=== PATIENT | male | born 1985 | race Caucasian/White ===

== ENCOUNTER 2016-03-09 15:03 | Emergency (ER) | payer SELFPAY ==
[~2016-03-09 15:03] MED LIST: ANAPROX DS550 MG PO; CLEOCIN HCL150 MG PO; ELIMITE 5%60 GM PO; TRAMADOL HCL50 MG PO
[2016-03-09] MEDS ORDERED: NAPROSYN500 MG PO (15:37)
[2016-03-09] MEDS ORDERED: 'PARAFON FORTE500 M1 PO (15:37)
== END 2016-03-09 16:52 | disposition home or self-care (01) ==
LOC: ED 15:03
DX: M54.42 Lumbago with sciatica, left side (principal); M54.41 Lumbago with sciatica, right side; R03.0 Elevated blood-pressure reading, without diagnosis of hypertension; F17.200 Nicotine dependence, unspecified, uncomplicated; Z88.0 Allergy status to penicillin

== ENCOUNTER 2016-09-28 22:27 | Emergency (ER) | payer SELFPAY ==
[~2016-09-28] VITALS: Wt 104.3 kg
[~2016-09-28 22:27] MED LIST changes: +'PARAFON FORTE500 M1 PO; +NAPROSYN500 MG PO
[2016-09-29] MEDS ORDERED: BENADRYL ALLERG25 M5 PO (00:29)
[2016-09-29] MEDS ORDERED: PREDNISONE50 MG PO (00:29)
== END 2016-09-29 01:05 | disposition home or self-care (01) ==
LOC: ED 22:27
DX: S20.361A Insect bite (nonvenomous) of right front wall of thorax, initial encounter (principal); Z88.0 Allergy status to penicillin; Z88.7 Allergy status to serum and vaccine; F17.200 Nicotine dependence, unspecified, uncomplicated; W57.XXXA Bitten or stung by nonvenomous insect and other nonvenomous arthropods, initial encounter; Y93.9 Activity, unspecified; Y92.9 Unspecified place or not applicable; Y99.9 Unspecified external cause status

== ENCOUNTER 2016-09-30 17:58 | Inpatient (IN) | payer SELFPAY ==
[~2016-09-30] VITALS: Ht 193 cm; Wt 104.6 kg
--- NOTE | ~2016-09-30 | EKG ---
[place], [place] ELECTROCARDIOGRAM REPORT NAME: RAMON RANDALL UNIT #: [id number] ROOM: [id number] DOCTOR: SHANTELLE ALEGRIA MD BIRTHDATE: [birth year] DOS: 09/30/2016 TIME: 1804 hours. Normal sinus rhythm at 74 beats per minute. Complete left bundle branch block. An abnormal ECG. No previous tracing is available for comparison. SHANTELLE ALEGRIA MD CM:EKGRPT:ELECTROCARDIOGRAM REPORT 11 32 SHANTELLE ALEGRIA MD
[~2016-09-30 17:58] MED LIST changes: +BENADRYL ALLERG25 M5 PO; +PREDNISONE50 MG PO
[2016-09-30 18:05] VITALS: BP 139/81
[2016-09-30 18:17] LABS: BASO % 0.3 % (0.0-1.0); EOS # 0.1 10*3/uL (0.0-0.4); EOS % 0.6 % (1.0-4.0); HEMATOCRIT 45.9 % (42.0-52.0); HEMOGLOBIN 15.4 g/dl (14.0-18.0); IG # 0.1 10*3/uL (0.0-0.1); LYMPH # 3.9 10*3/uL (1.3-4.4); LYMPH % 28.5 % (27.0-41.0); MEAN CELL VOLUME 90.5 fl (80.0-94.0); MEAN CORPUSCULAR HGB 30.4 pg (27.0-31.0); MEAN CORPUSCULAR HGB CONC 33.6 g/dl (33.0-37.0); MEAN PLATELET VOLUME 9.6 fl (9.6-12.3); MONO # 0.8 10*3/uL (0.1-1.0); MONO % 5.9 % (3.0-9.0); NEUT # 8.9 10*3/uL (2.3-7.9); NEUT % 64.3 % (47.0-73.0); PLATELET COUNT AUTOMATED 284 10*3/uL (130-400); RED BLOOD COUNT 5.07 10*6/uL (4.50-5.90); RED CELL DISTRI WIDTH 12.2 % (0-14.5); WHITE BLOOD COUNT 13.8 10*3/uL (4.8-10.8)
[2016-09-30 18:26] LABS: URINE AMPHETAMINES < 1000 (1000ng/ml); URINE BARBITURATES < 200 (200ng/ml); URINE COCAINE < 300 (300ng/ml)
[2016-09-30 18:28] LABS: INTERNATIONAL NORM RATIO 1.1 (2.0-3.5); PROTHROMBIN TIME 11.2 SECONDS (9.0-12.4)
[2016-09-30 18:34] VITALS: BP 137/72
[2016-09-30 18:36] LABS: ALKALINE PHOSPHATASE 100 U/L (45-117); BILIRUBIN, TOTAL 0.3 mg/dl (0.2-1.0); BUN 17 mg/dl (7-24); CARBON DIOXIDE 25 mmol/L (21-32); CHLORIDE 108 mmol/L (98-107); EST GLOM FILT AFRICAN AMERICAN > 60 ml/min; GLUCOSE 122 mg/dL (65-99); MAGNESIUM 2.1 mg/dL (1.5-2.1); POTASSIUM 3.5 mmol/L (3.5-5.1); SGOT/AST 15 IU/L (3-35); SGPT/ALT 52 U/L (12-78); SODIUM 141 mmol/L (136-145); TOTAL PROTEIN 7.1 gm/dL (6.4-8.2)
[2016-09-30 18:37] LABS: TROPONIN I < 0.015 ng/ml (<0.045)
[2016-09-30 19:45] VITALS: BP 138/83
[2016-09-30 20:25] VITALS: BP 126/78
[2016-09-30 20:40] VITALS: BP 126/76
[2016-10-01] VITALS: BP 120/79
[2016-10-01 06:15] LABS: BASO # 0.1 10*3/uL (0.0-0.1); BASO % 0.9 % (0.0-1.0); EOS # 0.2 10*3/uL (0.0-0.4); HEMATOCRIT 43.5 % (42.0-52.0); HEMOGLOBIN 14.3 g/dl (14.0-18.0); LYMPH # 3.9 10*3/uL (1.3-4.4); MEAN CELL VOLUME 93.5 fl (80.0-94.0); MEAN CORPUSCULAR HGB 30.8 pg (27.0-31.0); MEAN CORPUSCULAR HGB CONC 32.9 g/dl (33.0-37.0); MEAN PLATELET VOLUME 10.2 fl (9.6-12.3); MONO # 0.8 10*3/uL (0.1-1.0); MONO % 8.2 % (3.0-9.0); NEUT # 4.7 10*3/uL (2.3-7.9); NEUT % 48.6 % (47.0-73.0); PLATELET COUNT AUTOMATED 238 10*3/uL (130-400); RED BLOOD COUNT 4.65 10*6/uL (4.50-5.90); RED CELL DISTRI WIDTH 12.4 % (0-14.5); WHITE BLOOD COUNT 9.7 10*3/uL (4.8-10.8)
[2016-10-01 06:24] LABS: PROTHROMBIN TIME 10.8 SECONDS (9.0-12.4)
[2016-10-01 06:32] LABS: BUN 18 mg/dl (7-24); CARBON DIOXIDE 27 mmol/L (21-32); CHLORIDE 107 mmol/L (98-107); GLUCOSE 92 mg/dL (65-99); POTASSIUM 3.9 mmol/L (3.5-5.1); SODIUM 141 mmol/L (136-145)
[2016-10-01 06:33] LABS: HEMOGLOBIN A1c 5.7 % (4.8-5.6)
[2016-10-01 06:43] LABS: CHOLESTEROL 147 mg/dL (<200); EST GLOM FILT AFRICAN AMERICAN > 60 ml/min; HDL CHOLESTEROL 30 mg/dl (40-60); LDL CHOLESTEROL 70 mg/dL (9-159); TRIGLYCERIDES 236 mg/dl (<150); VLDL CHOLESTEROL 47 mg/dL (6-40)
[2016-10-01 08:00] VITALS: BP 100/53
[2016-10-01 08:26] LABS: FOLIC ACID 5.55 ng/mL (>5.38)
[2016-10-01 12:00] VITALS: BP 134/75
== END 2016-10-01 13:15 | disposition home or self-care (01) | DRG 313 ==
LOC: ED 17:58 → EDHOLD 19:34 → 4E 19:34
PROVIDERS: Emergency Medicine; Internal Medicine
DX: R07.9 Chest pain, unspecified (principal); E78.5 Hyperlipidemia, unspecified; F17.210 Nicotine dependence, cigarettes, uncomplicated; I45.10 Unspecified right bundle-branch block; M54.42 Lumbago with sciatica, left side; M54.41 Lumbago with sciatica, right side; R21 Rash and other nonspecific skin eruption; R03.0 Elevated blood-pressure reading, without diagnosis of hypertension; T78.1XXA Other adverse food reactions, not elsewhere classified, initial encounter; T63.441A Toxic effect of venom of bees, accidental (unintentional), initial encounter; Y92.89 Other specified places as the place of occurrence of the external cause; Z88.0 Allergy status to penicillin; Z88.7 Allergy status to serum and vaccine; Z79.899 Other long term (current) drug therapy

== ENCOUNTER 2018-09-05 14:35 | Emergency (ER) | payer SELFPAY ==
[~2018-09-05] VITALS: Ht 185.4 cm; Wt 108.9 kg
[2018-09-05] MEDS ORDERED: CYCLOBENZAPRINE10 MG PO (16:21)
[2018-09-05] MEDS ORDERED: NAPROSYN500 MG PO (16:21)
[2018-09-05] MEDS ORDERED: MEDROL DOSEPAK4 MG PO (16:21)
== END 2018-09-05 16:26 | disposition home or self-care (01) ==
LOC: ED 14:35
DX: S39.012A Strain of muscle, fascia and tendon of lower back, initial encounter (principal); S16.1XXA Strain of muscle, fascia and tendon at neck level, initial encounter; E78.5 Hyperlipidemia, unspecified; F17.200 Nicotine dependence, unspecified, uncomplicated; Z88.0 Allergy status to penicillin; Z88.7 Allergy status to serum and vaccine; X50.0XXA Overexertion from strenuous movement or load, initial encounter; Y93.89 Activity, other specified; Y92.89 Other specified places as the place of occurrence of the external cause; Y99.8 Other external cause status

== ENCOUNTER → 2020-01-04 | Outpatient (CLI) | payer SELFPAY ==
[~2020-01-04] MED LIST changes: +CYCLOBENZAPRINE10 MG PO; +MEDROL DOSEPAK4 MG PO
== END | disposition home or self-care (01) ==
LOC: COVID19 13:47
PROVIDERS: ATTEND Internal Medicine
DX: Z20.828 Contact with and (suspected) exposure to other viral communicable diseases (principal)

== ENCOUNTER 2020-08-02 15:56 | Emergency (ER) | payer SELFPAY ==
[~2020-08-02] VITALS: Ht 190.5 cm; Wt 104.3 kg
[2020-08-02 16:48] LABS: BASO # 0.1 10*3/uL (0.0-0.1); EOS # 0.2 10*3/uL (0.0-0.4); EOS % 1.8 % (1.0-4.0); HEMATOCRIT 45.6 % (42.0-52.0); LYMPH # 2.2 10*3/uL (1.3-4.4); LYMPH % 19.8 % (27.0-41.0); MEAN CELL VOLUME 89.4 fl (80.0-94.0); MEAN CORPUSCULAR HGB 30.6 pg (27.0-31.0); MEAN CORPUSCULAR HGB CONC 34.2 g/dl (33.0-37.0); MEAN PLATELET VOLUME 9.8 fl (9.6-12.3); MONO # 0.7 10*3/uL (0.1-1.0); NEUT # 7.9 10*3/uL (2.3-7.9); NEUT % 70.9 % (47.0-73.0); PLATELET COUNT AUTOMATED 280 10*3/uL (130-400); RED CELL DISTRI WIDTH 11.5 % (0-14.5); WHITE BLOOD COUNT 11.1 10*3/uL (4.8-10.8)
[2020-08-02 17:09] LABS: BILIRUBIN Negative (Negative); BLOOD Negative (Negative); CLARITY Clear (Clear); COLOR Yellow (Yellow); GLUCOSE 1+ (Negative); KETONE Negative (Negative); LEUKO ESTERASE Negative (Negative); NITRITE Negative (Negative); UROBILINOGEN 0.2 E.U./dl (0.0-1.0)
[2020-08-02 17:12] LABS: ALBUMIN 3.5 gm/dl (3.1-4.5); ALKALINE PHOSPHATASE 135 U/L (45-117); BUN 16 mg/dl (7-24); CHLORIDE 107 mmol/L (98-107); CREATININE 0.82 mg/dL (0.70-1.30); LIPASE 95 U/L (73-393); POTASSIUM 4.1 mmol/L (3.5-5.1); SGOT/AST 19 IU/L (3-35); SGPT/ALT 59 U/L (12-78); SODIUM 137 mmol/L (136-145)
[2020-08-02 17:19] LABS: MUCOUS 1+
== END 2020-08-02 19:07 | disposition home or self-care (01) ==
LOC: ED 15:56
PROVIDERS: Emergency Medicine
DX: K80.20 Calculus of gallbladder without cholecystitis without obstruction (principal); K76.0 Fatty (change of) liver, not elsewhere classified; K80.50 Calculus of bile duct without cholangitis or cholecystitis without obstruction; F17.200 Nicotine dependence, unspecified, uncomplicated; Z88.0 Allergy status to penicillin; Z88.8 Allergy status to other drugs, medicaments and biological substances; Z79.899 Other long term (current) drug therapy

== ENCOUNTER 2020-09-27 16:25 | Emergency (ER) | payer SELFPAY ==
[~2020-09-27] VITALS: Ht 193 cm; Wt 99.8 kg
[2020-09-27 18:19] LABS: BILIRUBIN Negative (Negative); BLOOD 1+ (Negative); CLARITY Clear (Clear); COLOR Yellow (Yellow); GLUCOSE 3+ (Negative); KETONE 1+ (Negative); LEUKO ESTERASE Trace (Negative); NITRITE Negative (Negative); PH 5.5 (4.5-8.0); SPECIFIC GRAVITY >= 1.030 (1.001-1.030); UROBILINOGEN 0.2 E.U./dl (0.0-1.0)
[2020-09-27 18:39] LABS: EPITHELIAL CELLS 0-2; WBC 31-40 wbc/hpf (0-5)
[2020-09-27 18:40] LABS: BACTERIA 1+; YEAST 1+
[2020-09-27 19:12] LABS: BASO # 0.1 10*3/uL (0.0-0.1); BASO % 0.5 % (0.0-1.0); EOS # 0.1 10*3/uL (0.0-0.4); EOS % 0.5 % (1.0-4.0); HEMATOCRIT 41.2 % (42.0-52.0); LYMPH # 1.5 10*3/uL (1.3-4.4); LYMPH % 11.6 % (27.0-41.0); MEAN CELL VOLUME 86.7 fl (80.0-94.0); MEAN CORPUSCULAR HGB 30.9 pg (27.0-31.0); MEAN CORPUSCULAR HGB CONC 35.7 g/dl (33.0-37.0); MONO % 7.8 % (3.0-9.0); NEUT # 10.5 10*3/uL (2.3-7.9); NEUT % 79.1 % (47.0-73.0); PLATELET COUNT AUTOMATED 224 10*3/uL (130-400); RED BLOOD COUNT 4.75 10*6/uL (4.50-5.90); RED CELL DISTRI WIDTH 11.2 % (0-14.5); WHITE BLOOD COUNT 13.3 10*3/uL (4.8-10.8)
[2020-09-27 19:27] LABS: ALBUMIN 3.7 gm/dl (3.1-4.5); ALKALINE PHOSPHATASE 183 U/L (45-117); BUN 8 mg/dl (7-24); CHLORIDE 100 mmol/L (98-107); CREATININE 0.99 mg/dL (0.70-1.30); POTASSIUM 3.7 mmol/L (3.5-5.1); SGOT/AST 32 IU/L (3-35); SGPT/ALT 88 U/L (12-78); SODIUM 133 mmol/L (136-145)
[2020-09-27] MEDS ORDERED: FLUCONAZOLE100 MG PO (20:27)
== END 2020-09-27 20:36 | disposition home or self-care (01) ==
LOC: ED 16:25
PROVIDERS: Physician Assistant
DX: N47.1 Phimosis (principal); F17.200 Nicotine dependence, unspecified, uncomplicated; Z88.0 Allergy status to penicillin; Z88.7 Allergy status to serum and vaccine; Z79.899 Other long term (current) drug therapy

== ENCOUNTER 2022-05-04 16:25 | Emergency (ER) | payer SELFPAY ==
[~2022-05-04] VITALS: Ht 193 cm; Wt 88.5 kg
[~2022-05-04 16:25] MED LIST changes: +FLUCONAZOLE100 MG PO
== END 2022-05-04 19:29 | disposition home or self-care (01) ==
LOC: ED 16:25
DX: S61.012A Laceration without foreign body of left thumb without damage to nail, initial encounter (principal); Z88.0 Allergy status to penicillin; Z88.7 Allergy status to serum and vaccine; Z87.891 Personal history of nicotine dependence; W45.8XXA Other foreign body or object entering through skin, initial encounter; Y93.89 Activity, other specified; Y92.89 Other specified places as the place of occurrence of the external cause; Y99.8 Other external cause status